=== PATIENT | female | born 1980 | race Caucasian/White ===

== ENCOUNTER 2018-02-11 17:56 | Emergency (ER) | payer SELFPAY ==
[~2018-02-11] VITALS: Ht 175.3 cm; Wt 120.0 kg
[2018-02-11 18:57] VITALS: Ht 175.3 cm; Wt 120.0 kg
[2018-02-11] MEDS ORDERED: NAPROSYN500 MG PO (21:30)
[2018-02-11] MEDS ORDERED: CYCLOBENZAPRINE10 MG PO (21:30)
[2018-02-11 22:02] VITALS: BP 145/65
== END 2018-02-11 22:04 | disposition home or self-care (01) ==
LOC: D.ER 17:56
DX: M54.5 Low back pain (principal); M25.562 Pain in left knee; F17.200 Nicotine dependence, unspecified, uncomplicated

== ENCOUNTER 2018-02-15 18:54 | Emergency (ER) | payer SELFPAY ==
[~2018-02-15] VITALS: Ht 175.3 cm; Wt 119.1 kg
[~2018-02-15 18:54] MED LIST: CYCLOBENZAPRINE10 MG PO; NAPROSYN500 MG PO
[2018-02-15 19:01] VITALS: Ht 175.3 cm; Wt 119.1 kg
[2018-02-15] MEDS ORDERED: ULTRAM50 MG PO (21:12)
[2018-02-15] MEDS ORDERED: CLEOCIN HCL300 MG PO (21:12)
[2018-02-15] MEDS ORDERED: IBUPROFEN800 MG PO (21:12)
[2018-02-15 22:40] VITALS: BP 143/77
== END 2018-02-15 22:40 | disposition home or self-care (01) ==
LOC: D.ER 18:54
DX: S01.82XA Laceration with foreign body of other part of head, initial encounter (principal); V19.9XXA Pedal cyclist (driver) (passenger) injured in unspecified traffic accident, initial encounter; Y93.89 Activity, other specified; Y92.89 Other specified places as the place of occurrence of the external cause; F17.200 Nicotine dependence, unspecified, uncomplicated

== ENCOUNTER 2018-02-25 12:47 | Emergency (ER) | payer MEDICAID ==
[~2018-02-25] VITALS: Ht 175.3 cm; Wt 120.0 kg
[~2018-02-25 12:47] MED LIST changes: +CLEOCIN HCL300 MG PO; +IBUPROFEN800 MG PO; +ULTRAM50 MG PO
[2018-02-25 12:52] VITALS: BP 119/56; Ht 175.3 cm; Wt 120.0 kg
== END 2018-02-25 13:37 | disposition home or self-care (01) ==
LOC: D.ER 12:47
DX: S05.41XD Penetrating wound of orbit with or without foreign body, right eye, subsequent encounter (principal); X58.XXXD Exposure to other specified factors, subsequent encounter; Z48.02 Encounter for removal of sutures; F17.200 Nicotine dependence, unspecified, uncomplicated